=== PATIENT | male | born 1975 | race Two or more races ===

== ENCOUNTER 2016-03-29 01:48 | Emergency (ER) | payer SELFPAY ==
[~2016-03-29] VITALS: Ht 170.2 cm; Wt 99.8 kg
[2016-03-29 01:54] VITALS: BP 158/100
[2016-03-29] MEDS ORDERED: Haloperidol 5mg/ml Inj IM ONE (02:15)
[2016-03-29 03:00] VITALS: BP 118/81
[2016-03-29 03:04] LABS: BASOPHILS % (AUTO) 0.9 % (0.0-2.0); EOSINOPHILS % (AUTO) 0.5 % (0.0-3.0); LYMPHOCYTES % (AUTO) 11.1 % (20.0-45.0); MEAN CORPUSCULAR HEMOGLOBIN 30.1 PG (27.0-31.0); MEAN CORPUSCULAR HGB CONC 32.9 G/DL (32.0-36.0); MEAN CORPUSCULAR VOLUME 92 FL (80-99); MEAN PLATELET VOLUME 7.9 FL (6.5-10.1); MONOCYTES % (AUTO) 10.1 % (1.0-10.0); NEUTROPHILS % (AUTO) 77.4 % (45.0-75.0); PLATELET COUNT 291 K/UL (150-450); RED BLOOD COUNT 5.58 M/UL (4.70-6.10); RED CELL DISTRIBUTION WIDTH 12.2 % (11.6-14.8); WHITE BLOOD COUNT 15.2 K/UL (4.8-10.8)
[2016-03-29 03:13] LABS: ALCOHOL < 10 mg/dL; ANION GAP 24 (5-15); CALCIUM 9.8 mg/dL (8.6-10.2); CARBON DIOXIDE 18 mEQ/L (20-30); CHLORIDE 95 mEQ/L (98-107); CREATININE 1.1 mg/dL (0.7-1.2); GLOMERULAR FILTRATION RATE > 60 mL/min (>60); HEMOLYSIS 4; POTASSIUM 4.1 mEQ/L (3.4-4.9); SODIUM 137 mEQ/L (135-145)
[2016-03-29 05:04] VITALS: BP 112/67
--- NOTE | 2016-03-29 05:59 | Emergency Room Report ---
History of Present Illness General Chief Complaint: Altered Level of Consciousness Source: Patient, EMS Present Illness HPI This is a 40-year-old male brought in by EMS for altered mental status. He was found outside of his apartment by family. Unknown downtime. He was acting abnormally. He felt cold per EMS. Is no trauma. Family called 911. Patient initially unable to give a history. Allergies: Coded Allergies: No Known Allergies (Unverified , 03/29/16) Patient History Past Medical History: see triage record, old chart reviewed Past Surgical History: none Pertinent Family History: none Social History: Reports: drug use Immunizations: other Reviewed Nursing Documentation: PMH: Agreed, PSxH: Agreed Nursing Documentation-PMH Past Medical History: No History, Except For Review of Systems All Other Systems: limited - Secondary to mental status Physical Exam Vital Signs Date Time Temp Pulse Resp B/P Pulse Ox O2 Delivery O2 Flow Rate FiO2 03/29/16 01:42 97.7 108 16 158/100 99 Room Air vitals show tachycardia Sp02 EP Interpretation: reviewed, normal General Appearance: well appearing, no apparent distress, alert Head: normocephalic, atraumatic Eyes: bilateral eye EOMI, bilateral eye PERRL ENT: hearing grossly normal, normal pharynx Neck: full range of motion, supple, no meningismus Respiratory: chest non-tender, lungs clear, normal breath sounds Cardiovascular #1: regular rate, rhythm, no murmur Gastrointestinal: normal bowel sounds, non tender, no mass, no organomegaly, no bruit, non-distended Musculoskeletal: back normal, normal range of motion Psychiatric: other - Initially, patient was grimacing and grunting. When I laid my hand over his face, he suddenly woke up and ask where he was. He seemed to be confused. He then laid back down and fell asleep. Skin: warm/dry Medical Decision Making Diagnostic Impression: Primary Impression: Altered level of consciousness Additional Impressions: Amphetamine abuse Psychosis Qualified Codes: F23 - Brief psychotic disorder ER Course She presents with altered mental status and drug induced psychosis. Most likely secondary to amphetamine abuse. No trauma. He slept through the night. Now awake and walking the bathroom without a problem. No suicidal thought homicidal thought. This patient is a chronic risk of self injury due to poor impulse control, limited coping skills, and judgment intermittently impaired by intoxication. I believe that the available clinical evidence to suggest that these characteristics derived primarily from personality disorder and are likely very stable over time. Hospitalization would likely attenuate risk of self-harm only during care home period, without lasting risk reduction. Serious self-harm , while possible, would likely be inadvertent, and because of impulsivity, and foreseeable. For these reasons, I do not believe hospitalization would provide meaningful reduction in risk of self-harm. Lab Results Impression labs unremarkable Last Vital Signs Date Time Temp Pulse Resp B/P Pulse Ox O2 Delivery O2 Flow Rate FiO2 03/29/16 05:04 97.8 98 14 112/67 100 Room Air Status: improved Disposition: HOME, SELF-CARE Condition: Stable Referrals: NOT CHOSEN IPA/,REFERRING (PCP) Additional Instructions: Abstain from drugs and alcohol. Followup with rehabilitation in 7 days. Return if worse. HOOD MCGREGOR M.D. Mar 29, 2016 05:59
[2016-03-29 06:08] VITALS: BP 115/70
== END 2016-03-29 06:08 | disposition home or self-care (01) ==
LOC: EDBD 01:48 → EMR 02:03
DX: R41.82 Altered mental status, unspecified (principal); F15.10 Other stimulant abuse, uncomplicated; F29 Unspecified psychosis not due to a substance or known physiological condition
CPT/HCPCS: 36415; 80048; 80300; 85025; 96372; 99283; G0480; J1630; 80329